=== PATIENT | male | born 1980 | race Hispanic/Latino ===

== ENCOUNTER 2022-04-07 10:24 | Emergency (ER) | payer OTHER ==
[~2022-04-07] VITALS: Ht 165.1 cm; Wt 92.2 kg
[2022-04-07] MEDS ORDERED: OMEPRAZOLE40 MG PO (10:34)
[2022-04-07] MEDS ORDERED: ULTRAM 50MG50 MG PO (10:50)
[2022-04-07] MEDS ORDERED: CEPHALEXIN500 MG PO (10:50)
[2022-04-07] MEDS ORDERED: TETANUS/DIPHTHERIA TOX ADULT 0.5 ML SYR IM STA (10:52)
[2022-04-07] MEDS ORDERED: TETANUS/DIPHTHERIA TOX ADULT 0.5 ML SYR ONE (11:12)
== END 2022-04-07 11:09 | disposition home or self-care (01) ==
LOC: FSED 10:26
DX: S61.212A Laceration without foreign body of right middle finger without damage to nail, initial encounter (principal); W26.0XXA Contact with knife, initial encounter; Y92.89 Other specified places as the place of occurrence of the external cause; K21.9 Gastro-esophageal reflux disease without esophagitis
CPT/HCPCS: 90471; 90714; 96372; 99283

== ENCOUNTER 2022-05-18 13:35 | Emergency (ER) | payer SELFPAY ==
[~2022-05-18] VITALS: Ht 165.1 cm; Wt 84.5 kg
[~2022-05-18 13:35] MED LIST: CEPHALEXIN500 MG PO; OMEPRAZOLE40 MG PO; ULTRAM 50MG50 MG PO
== END 2022-05-18 15:13 | disposition home or self-care (01) ==
LOC: FSED 13:47
DX: R06.7 Sneezing (principal); T78.40XA Allergy, unspecified, initial encounter; K21.9 Gastro-esophageal reflux disease without esophagitis; F17.210 Nicotine dependence, cigarettes, uncomplicated
CPT/HCPCS: 83518; 99283